=== PATIENT | male | born 1940 | race African-American/Black ===

== ENCOUNTER 2018-05-26 20:54 | Inpatient (IN) | payer MEDICARE, OTHER ==
[~2018-05-26] VITALS: Ht 175.3 cm; Wt 109.3 kg
[2018-05-26] MEDS ORDERED: SODIUM CHLORIDE 0.9% 1,000 ML IV ONE (23:28)
[2018-05-27 00:27] LABS: BASOPHILS % 0.4 % (0.0-2.0); HEMATOCRIT. 37.6 % (42.0-52.0); HEMOGLOBIN. 12.8 g/dL (14.0-18.0); LYMPHOCYTES % 16.6 % (20.0-50.0); MEAN CORPUSCULAR HEMOGLOBIN 29.4 pg (28.0-32.0); MEAN PLATELET VOLUME 10.6 fl (7.4-10.4); MONOCYTES % 5.8 % (2.0-8.0); NEUTROPHILS % 75.2 % (40.0-76.0); PLATELET 184 x1000/uL (130-400); RED BLOOD CELL COUNT 4.37 mill/uL (4.7-6.1)
[2018-05-27 00:30] LABS: CLARITY URINE CLEAR (CLEAR); COLOR URINE YELLOW (YELLOW); KETONES URINE NEGATIVE (NEGATIVE); LEUKOCYTE ESTERASE URINE NEGATIVE (NEGATIVE); NITRITE URINE NEGATIVE (NEGATIVE); OCCULT BLOOD URINE NEGATIVE (NEGATIVE); PROTEIN URINE 3+ (NEGATIVE); SPECIFIC GRAVITY URINE 1.026 (1.005-1.030); UROBILINOGEN URINE 0.2 E.U./dL (0.2-1.0)
[2018-05-27 00:31] LABS: CHLORIDE 101 mEq/L (98-107)
[2018-05-27 00:36] LABS: PROTHROMBIN TIME 10.2 sec (9.1-11.1)
[2018-05-27] MEDS ORDERED: AMLO2.5T45 MT (00:42)
[2018-05-27 00:46] LABS: BETA HYDROXYBUTYRATE 0.2 mMol/L (0.0-0.3)
[2018-05-27 01:11] LABS: BG CARBOXYHEMOGLOBIN 0.9 % (0.5-1.5); BG DEOXYHEMOGLOBIN 1.9 % (0.0-5.0); BG FRACTION INSPIRED OXYGEN 21; BG HCO3 ACT 24.4 mmol/L (22.0-26.0); BG METHEMOGLOBIN 0.1 % (0.0-1.5); BG OXYGEN SATURATION 98.1 % (92.0-98.5); BG OXYHEMOGLOBIN 97.1 % (94.0-97.0); BG PH 7.462 (7.350-7.450); BG PO2 110.6 mmHg (75.0-100.0); BG SAMPLE SITE LEFT BRACHIAL; BG TOTAL HEMOGLOBIN 11.6 g/dL (12.0-18.0); BG VENT MODE ROOM AIR
[2018-05-27] MEDS ORDERED: INSULIN REGULAR (HUMULIN R) 300UNITS/3ML SUBCUT ONE (02:15)
[2018-05-27] MEDS ORDERED: ASPIRIN 325MG TABLET PO ONE (02:30)
[2018-05-27] MEDS ORDERED: ALLO100T MT (05:30)
[2018-05-27] MEDS ORDERED: ATEN100T MT (05:37)
[2018-05-27] MEDS ORDERED: HYDR100T26 MT (05:39)
[2018-05-27] MEDS ORDERED: TERA5CAP4 MT (05:40)
[2018-05-27] MEDS ORDERED: FURO40TA5 MT (05:42)
[2018-05-27 05:50] VITALS: BP 189/82
[2018-05-27] MEDS ORDERED: HYDROCODONE/ACETAMINOPHEN 5/325MG TABLET PO PRN (07:15)
[2018-05-27] MEDS ORDERED: DIPHENHYDRAMINE 50MG/ML VIAL IV PRN (07:15)
[2018-05-27] MEDS ORDERED: DEXTROSE 50% WATER 50ML SYRINGE IV PRN (07:15)
[2018-05-27] MEDS ORDERED: MAGNESIUM/ALUMINUM HYDROXIDE/SIMETHICONE 30ML UDC PO PRN (07:15)
[2018-05-27] MEDS ORDERED: DOCUSATE SODIUM 100MG CAPSULE PO PRN (07:15)
[2018-05-27] MEDS ORDERED: GUAIFENESIN 200MG/10ML SUGAR FREE UDC PO PRN (07:15)
[2018-05-27] MEDS ORDERED: NA PHOS,M-B/NA PHOS,DI-BA ENEMA 118ML PR PRN (07:15)
[2018-05-27] MEDS ORDERED: IPRATROPIUM/ALBUTEROL 0.5-3(2.5)MG/3ML NEB INH PRN (07:15)
[2018-05-27] MEDS ORDERED: ONDANSETRON HCL 4MG/2ML INJ IV PRN (07:15)
[2018-05-27] MEDS ORDERED: ATENOLOL 100 MG TABLET PO SCH (08:00)
[2018-05-27] MEDS ORDERED: SODIUM CHLORIDE 0.9% 1,000 ML IV SCH (08:00)
[2018-05-27] MEDS ORDERED: AMLODIPINE 2.5MG TABLET PO SCH (08:00)
[2018-05-27] MEDS: BLOOD SUGAR DIAGNOSTIC STRIP TEST SCH ×4 (08:04→22:38)
[2018-05-27] MEDS ORDERED: ENOXAPARIN 40MG/0.4ML SYR SUBCUT SCH (09:00)
[2018-05-27] MEDS: GLIPIZIDE 5MG TABLET PO SCH ×2 (09:17→17:10)
[2018-05-27] MEDS: INSULIN LISPRO 100 UNITS/ML SUBCUT SCH ×4 (09:19→22:39)
[2018-05-27] MEDS ORDERED: POTASSIUM CHLORIDE 20MEQ TABLET SR PO NR (10:00)
[2018-05-27 11:09] LABS: BASOPHILS % 0.6 % (0.0-2.0); EOSINOPHILS % 4.4 % (0.0-5.0); HEMATOCRIT. 36.6 % (42.0-52.0); HEMOGLOBIN. 12.4 g/dL (14.0-18.0); LYMPHOCYTES % 28.3 % (20.0-50.0); MEAN CORPUSCULAR VOLUME 85.2 fL (80.0-94.0); MEAN PLATELET VOLUME 10.1 fl (7.4-10.4); MONOCYTES % 6.6 % (2.0-8.0); NEUTROPHILS % 60.1 % (40.0-76.0); PLATELET 186 x1000/uL (130-400); RED BLOOD CELL COUNT 4.29 mill/uL (4.7-6.1); RED CELL DISTRIBUTION WIDTH 14.1 % (11.6-14.6)
[2018-05-27 11:25] LABS: CHLORIDE 104 mEq/L (98-107)
[2018-05-27] MEDS ORDERED: POTASSIUM CHLORIDE INJ 40 MEQ in SODIUM CHLORIDE 0.9% 1,000 ML IV SCH (12:00)
[2018-05-27 13:06] VITALS: BP 161/66
[2018-05-27] MEDS ORDERED: POTASSIUM CHLORIDE 20MEQ TABLET SR PO SCH (13:15)
[2018-05-27] MEDS ORDERED: LACTULOSE 20G/30ML UDC PO SCH (13:30)
[2018-05-27 16:00] VITALS: BP 195/94
[2018-05-27] MEDS: SODIUM CHLORIDE 0.9% INJ 3ML FLUSH IVF SCH ×2 (16:53→22:39)
[2018-05-27] MEDS: DOCUSATE SODIUM 100MG CAPSULE PO SCH (16:54)
[2018-05-27] MEDS: CLONIDINE 0.1MG TABLET PO PRN (17:10)
[2018-05-27 20:00] VITALS: BP 167/77
[2018-05-27] MEDS: POLYETHYLENE GLYCOL 3350 (17GM) 1 DOSE PACK PO SCH (21:00)
[2018-05-27] MEDS: TERAZOSIN HCL 5MG CAPSULE PO SCH (22:37)
[2018-05-27] MEDS: ENOXAPARIN 30MG/0.3ML SYR SUBCUT SCH (23:17)
[2018-05-27] MEDS: ASPIRIN 81MG TABLET PO SCH (23:17)
[2018-05-27] MEDS: ATENOLOL 25MG TABLET PO SCH (23:17)
[2018-05-27] MEDS: BENAZEPRIL 10MG TABLET PO SCH (23:17)
[2018-05-28] VITALS: BP 136/72
[2018-05-28 04:00] VITALS: BP 139/67
[2018-05-28 06:35] LABS: BASOPHILS % 0.8 % (0.0-2.0); EOSINOPHILS % 3.4 % (0.0-5.0); HEMATOCRIT. 31.9 % (42.0-52.0); MEAN CORPUSCULAR HEMOGLOBIN 29.8 pg (28.0-32.0); MEAN CORPUSCULAR VOLUME 86.7 fL (80.0-94.0); MEAN PLATELET VOLUME 10.8 fl (7.4-10.4); MONOCYTES % 6.7 % (2.0-8.0); NEUTROPHILS % 53.1 % (40.0-76.0); PLATELET 160 x1000/uL (130-400); RED BLOOD CELL COUNT 3.68 mill/uL (4.7-6.1); RED CELL DISTRIBUTION WIDTH 14.1 % (11.6-14.6)
[2018-05-28] MEDS: BLOOD SUGAR DIAGNOSTIC STRIP TEST SCH ×4 (07:04→21:43)
[2018-05-28] MEDS: SODIUM CHLORIDE 0.9% INJ 3ML FLUSH IVF SCH ×3 (07:04→21:43)
[2018-05-28 07:06] LABS: CHLORIDE 108 mEq/L (98-107)
[2018-05-28] MEDS ORDERED: POTASSIUM CHLORIDE 20MEQ TABLET SR PO PRN (07:30)
[2018-05-28 07:32] LABS: LDL CHOLESTEROL 76 mg/dL (5-100); PHOSPHORUS 2.7 mg/dL (2.5-4.9)
[2018-05-28 07:34] LABS: HDL CHOLESTEROL 29 mg/dL (40-59)
[2018-05-28 08:00] VITALS: BP 158/54
[2018-05-28 08:49] LABS: CLARITY URINE CLEAR (CLEAR); COLOR URINE YELLOW (YELLOW); KETONES URINE TRACE (NEGATIVE); LEUKOCYTE ESTERASE URINE NEGATIVE (NEGATIVE); NITRITE URINE NEGATIVE (NEGATIVE); OCCULT BLOOD URINE NEGATIVE (NEGATIVE); PH URINE 5.5 (4.5-8.0); PROTEIN URINE 4+ (NEGATIVE); SPECIFIC GRAVITY URINE 1.021 (1.005-1.030); UROBILINOGEN URINE 0.2 E.U./dL (0.2-1.0)
[2018-05-28] MEDS ORDERED: ENOXAPARIN 30MG/0.3ML SYR SUBCUT SCH (09:00)
[2018-05-28] MEDS ORDERED: ATENOLOL 25MG TABLET PO SCH (09:00)
[2018-05-28] MEDS: ENOXAPARIN 30MG/0.3ML SYR SUBCUT SCH ×2 (09:49→21:29)
[2018-05-28] MEDS: ATENOLOL 25MG TABLET PO SCH (09:49)
[2018-05-28] MEDS: AMLODIPINE 10MG TABLET PO SCH (09:50)
[2018-05-28] MEDS: DOCUSATE SODIUM 100MG CAPSULE PO SCH ×2 (09:50→17:07)
[2018-05-28] MEDS: ASPIRIN 81MG TABLET PO SCH (09:50)
[2018-05-28] MEDS: GLIPIZIDE 5MG TABLET PO SCH ×3 (09:50→17:40)
[2018-05-28] MEDS: INSULIN LISPRO 100 UNITS/ML SUBCUT SCH ×4 (09:51→21:58)
[2018-05-28] MEDS: BENAZEPRIL 10MG TABLET PO SCH (09:58)
[2018-05-28] MEDS ORDERED: MAGNESIUM 2 G PREMIX 50 ML IV SCH (11:00)
[2018-05-28] MEDS ORDERED: POTASSIUM CHLORIDE 20MEQ TABLET SR PO SCH (11:00)
[2018-05-28 12:00] VITALS: BP 166/61
[2018-05-28] MEDS: HYDRALAZINE HCL 50MG TABLET PO SCH ×2 (14:01→22:52)
[2018-05-28 16:00] VITALS: BP 132/84
[2018-05-28 16:41] LABS: T4 FREE 1.24 ng/dL (0.76-1.46)
[2018-05-28] MEDS: CLOPIDOGREL 75MG TABLET PO SCH (18:54)
[2018-05-28 20:00] VITALS: BP 152/75
[2018-05-28] MEDS: TERAZOSIN HCL 5MG CAPSULE PO SCH (21:27)
[2018-05-28] MEDS: POLYETHYLENE GLYCOL 3350 (17GM) 1 DOSE PACK PO SCH (21:28)
[2018-05-28 23:58] LABS: CREATINE KINASE MB FRACTION 1.9 ng/mL (0.5-3.6)
[2018-05-29] VITALS: BP 155/72
[2018-05-29 04:00] VITALS: BP 170/75
[2018-05-29] MEDS: HYDRALAZINE HCL 50MG TABLET PO SCH ×2 (05:58→13:23)
[2018-05-29] MEDS: SODIUM CHLORIDE 0.9% INJ 3ML FLUSH IVF SCH ×2 (05:59→13:24)
[2018-05-29 06:45] LABS: BASOPHILS % 0.8 % (0.0-2.0); EOSINOPHILS % 3.4 % (0.0-5.0); HEMATOCRIT. 32.7 % (42.0-52.0); HEMOGLOBIN. 11.2 g/dL (14.0-18.0); LYMPHOCYTES % 31.7 % (20.0-50.0); MEAN CORPUSCULAR HEMOGLOBIN 29.6 pg (28.0-32.0); MEAN CORPUSCULAR VOLUME 86.3 fL (80.0-94.0); MEAN PLATELET VOLUME 10.7 fl (7.4-10.4); MONOCYTES % 6.9 % (2.0-8.0); NEUTROPHILS % 57.2 % (40.0-76.0); PLATELET 168 x1000/uL (130-400); RED BLOOD CELL COUNT 3.79 mill/uL (4.7-6.1); RED CELL DISTRIBUTION WIDTH 14.2 % (11.6-14.6)
[2018-05-29 07:19] LABS: PHOSPHORUS 2.6 mg/dL (2.5-4.9)
[2018-05-29 07:24] LABS: CREATINE KINASE MB FRACTION 1.5 ng/mL (0.5-3.6)
[2018-05-29] MEDS: BLOOD SUGAR DIAGNOSTIC STRIP TEST SCH ×3 (07:40→17:39)
[2018-05-29 08:00] VITALS: BP 170/75
[2018-05-29] MEDS: ASPIRIN 81MG TABLET PO SCH (08:55)
[2018-05-29] MEDS: AMLODIPINE 10MG TABLET PO SCH (08:55)
[2018-05-29] MEDS: GLIPIZIDE 5MG TABLET PO SCH ×2 (08:56→17:40)
[2018-05-29] MEDS: CLOPIDOGREL 75MG TABLET PO SCH (08:56)
[2018-05-29] MEDS: DOCUSATE SODIUM 100MG CAPSULE PO SCH ×2 (08:56→17:40)
[2018-05-29] MEDS: CLONIDINE 0.1MG TABLET PO PRN (08:57)
[2018-05-29] MEDS: ATENOLOL 25MG TABLET PO SCH (08:57)
[2018-05-29] MEDS: INSULIN LISPRO 100 UNITS/ML SUBCUT SCH ×3 (08:57→18:16)
[2018-05-29] MEDS: ENOXAPARIN 30MG/0.3ML SYR SUBCUT SCH (08:58)
[2018-05-29 12:07] VITALS: BP 168/75
[2018-05-29 16:13] VITALS: BP 155/73
[2018-05-29] MEDS ORDERED: METO25TA6 PO (16:34)
[2018-05-29] MEDS ORDERED: AMLO10TA80 PO (16:34)
[2018-05-29] MEDS ORDERED: GLIP5TAB12 PO (16:34)
[2018-05-29] MEDS ORDERED: TERA5CAP4 PO (16:34)
[2018-05-29] MEDS ORDERED: ASPI-1160 PO (16:34)
[2018-05-29] MEDS ORDERED: HYDR100T26 PO (16:34)
[2018-05-29] MEDS ORDERED: CLOP75TA16 PO (16:34)
[2018-05-29 18:25] VITALS: BP 155/73
[2018-05-29] MEDS ORDERED: METOPROLOL TARTRATE 25MG TABLET PO SCH (21:00)
[2018-05-29] MEDS ORDERED: HYDRALAZINE HCL 100MG TABLET PO SCH (22:00)
== END 2018-05-29 20:35 | disposition home health service (06) | DRG 637 ==
LOC: ER 22:04 → 7WST 05-27 02:02 → EDBEDREQ 05-27 02:04 → EDBEDREQSVC 05-27 02:04 → EDBEDREQTM 05-27 02:04 → EDBEDREQDT 05-27 02:04 → ENRESERV 05-27 05:13
PROVIDERS: ADMIT Family Medicine; ATTEND Family Medicine
DX: E11.00 Type 2 diabetes mellitus with hyperosmolarity without nonketotic hyperglycemic-hyperosmolar coma (NKHHC) (principal); E43 Unspecified severe protein-calorie malnutrition; N18.4 Chronic kidney disease, stage 4 (severe); E87.1 Hypo-osmolality and hyponatremia; G93.40 Encephalopathy, unspecified; I13.0 Hypertensive heart and chronic kidney disease with heart failure and stage 1 through stage 4 chronic kidney disease, or unspecified chronic kidney disease; J98.11 Atelectasis; D63.8 Anemia in other chronic diseases classified elsewhere; E11.22 Type 2 diabetes mellitus with diabetic chronic kidney disease; E78.5 Hyperlipidemia, unspecified; E86.0 Dehydration; E66.9 Obesity, unspecified; M10.9 Gout, unspecified; E11.65 Type 2 diabetes mellitus with hyperglycemia; E87.5 Hyperkalemia; E87.6 Hypokalemia; G40.909 Epilepsy, unspecified, not intractable, without status epilepticus; I50.9 Heart failure, unspecified; K59.00 Constipation, unspecified; T50.1X5A Adverse effect of loop [high-ceiling] diuretics, initial encounter; Z83.3 Family history of diabetes mellitus; Z68.35 Body mass index [BMI] 35.0-35.9, adult; Z86.73 Personal history of transient ischemic attack (TIA), and cerebral infarction without residual deficits; Z87.891 Personal history of nicotine dependence
CPT/HCPCS: 36415; 36600; 71045; 80048; 80061; 82010; 82375; 82550; 82553; 82570; 82805; 82962; 83036; 83605; 83735; 83880; 83930; 84100; 84145; 84156; 84439; 84443; 84484; 85379; 93005; 93306; 93970; 96360; 99291; A6261; J1650; J1815; J3475; J3480; J7030; J7040

== ENCOUNTER 2018-09-19 21:07 | Emergency (ER) | payer MEDICARE, OTHER ==
[~2018-09-19] VITALS: Ht 177.8 cm; Wt 100.0 kg
[~2018-09-19 21:07] MED LIST: ALLO100T MT; AMLO10TA80 PO; AMLO2.5T45 MT; ASPI-1160 PO; ATEN100T MT; CLOP75TA16 PO; FURO40TA5 MT; GLIP5TAB12 PO; HYDR100T26 MT; HYDR100T26 PO; METO25TA6 PO; TERA5CAP4 MT; TERA5CAP4 PO
[2018-09-19] MEDS ORDERED: METOPROLOL TARTRATE 50MG TABLET PO ONE (23:15)
[2018-09-19] MEDS ORDERED: ASPIRIN 81MG TABLET PO ONE (23:15)
[2018-09-19] MEDS ORDERED: LABETALOL HCL 20MG/4ML CARPUJECT IV ONE (23:15)
[2018-09-19] MEDS ORDERED: NITROGLYCERIN OINT 1GM/INCH UDPKT TD ONE (23:15)
[2018-09-19] MEDS ORDERED: ASPIRIN 325MG EC TABLET PO ONE (23:45)
[2018-09-19] MEDS ORDERED: NITROGLYCERIN 50MG PREMIX 250 ML IV ONE (23:45)
[2018-09-19] MEDS ORDERED: HEPARIN 25,000 UNITS PREMIX 500 ML IV ONE (23:45)
[2018-09-19] MEDS ORDERED: HEPARIN 5000 UNITS/ML VIAL IV ONE (23:45)
[2018-09-20] MEDS ORDERED: HEPARIN 60 UNITS/KG BOLUS IV SCH
[2018-09-20] MEDS ORDERED: HEPARIN 25,000 UNITS PREMIX 500 ML IV SCH
[2018-09-20] MEDS ORDERED: HEPARIN BOLUS PRN aPTT 30-44 IV
[2018-09-20] MEDS ORDERED: HEPARIN BOLUS PRN aPTT <30 IV
[2018-09-20 00:07] LABS: BASOPHILS % 0.6 % (0.0-2.0); EOSINOPHILS % 1.7 % (0.0-5.0); HEMATOCRIT. 38.5 % (42.0-52.0); HEMOGLOBIN. 12.9 g/dL (14.0-18.0); LYMPHOCYTES % 13.2 % (20.0-50.0); MEAN CORPUSCULAR VOLUME 86.5 fL (80.0-94.0); MEAN PLATELET VOLUME 10.2 fl (7.4-10.4); MONOCYTES % 6.2 % (2.0-8.0); NEUTROPHILS % 78.3 % (40.0-76.0); PLATELET 182 x1000/uL (130-400); RED BLOOD CELL COUNT 4.45 mill/uL (4.7-6.1); RED CELL DISTRIBUTION WIDTH 14.3 % (11.6-14.6)
[2018-09-20 00:12] LABS: CHLORIDE 106 mEq/L (98-107)
[2018-09-20 00:17] LABS: PARTIAL THROMBOPLASTIN TIME 27.8 sec (23.4-31.0)
[2018-09-20 00:23] VITALS: BP 235/115
== END 2018-09-20 00:30 | disposition short-term general hospital (02) ==
LOC: ER 21:07
DX: I21.3 ST elevation (STEMI) myocardial infarction of unspecified site (principal); E11.65 Type 2 diabetes mellitus with hyperglycemia; Z79.4 Long term (current) use of insulin; Z79.84 Long term (current) use of oral hypoglycemic drugs; I10 Essential (primary) hypertension; Z86.73 Personal history of transient ischemic attack (TIA), and cerebral infarction without residual deficits
CPT/HCPCS: 36415; 71045; 80053; 82962; 83880; 84484; 85025; 85610; 85730; 93005; 99291; J1644; J3490

== ENCOUNTER 2019-02-27 12:31 | Inpatient (IN) | payer MEDICARE, OTHER ==
[~2019-02-27] VITALS: Ht 177.8 cm; Wt 108.4 kg
[~2019-02-27 12:31] MED LIST changes: -CLOP75TA16 PO; +CLOP75TA4 PO
[2019-02-27 12:45] LABS: BASOPHILS % 0.6 % (0.0-2.0); EOSINOPHILS % 2.3 % (0.0-5.0); HEMATOCRIT. 33.5 % (42.0-52.0); LYMPHOCYTES % 14.3 % (20.0-50.0); MEAN CORPUSCULAR VOLUME 88.2 fL (80.0-94.0); MEAN PLATELET VOLUME 9.7 fl (7.4-10.4); MONOCYTES % 6.6 % (2.0-8.0); NEUTROPHILS % 76.2 % (40.0-76.0); PLATELET 217 x1000/uL (130-400); RED CELL DISTRIBUTION WIDTH 16.6 % (11.6-14.6)
[2019-02-27] MEDS ORDERED: FUROSEMIDE 40MG/4ML VIAL IV ONE (12:45)
[2019-02-27] MEDS ORDERED: NITROGLYCERIN OINT 1GM/INCH UDPKT TD ONE (12:45)
[2019-02-27 12:53] LABS: CHLORIDE 113 mEq/L (98-107); PROTHROMBIN TIME 10.8 sec (9.6-11.0)
[2019-02-27 13:16] LABS: BG BASE EXCESS -3.1 mmol/L (-2.0-2.0); BG BILEVEL POS AIRWAY PRESSURE 15/5; BG CARBOXYHEMOGLOBIN 0.4 % (0.5-1.5); BG DEOXYHEMOGLOBIN 1.1 % (0.0-5.0); BG FRACTION INSPIRED OXYGEN 50; BG HCO3 ACT 21.6 mmol/L (22.0-26.0); BG METHEMOGLOBIN 0.3 % (0.0-1.5); BG OXYGEN SATURATION 98.9 % (92.0-98.5); BG OXYHEMOGLOBIN 98.2 % (94.0-97.0); BG PCO2 37.4 mmHg (35.0-45.0); BG PH 7.379 (7.350-7.450); BG PO2 159.7 mmHg (75.0-100.0); BG SAMPLE SITE LEFT RADIAL; BG TOTAL HEMOGLOBIN 11.4 g/dL (12.0-18.0); BG VENT MODE MASK - BIPAP; BG VENT RATE 16 set
[2019-02-27] MEDS ORDERED: CLONIDINE 0.1MG TABLET PO ONE (13:45)
[2019-02-27] MEDS ORDERED: DILTIAZEM HCL 90MG TABLET PO SCH (15:15)
[2019-02-27] MEDS ORDERED: FUROSEMIDE 40MG/4ML VIAL IVP SCH (17:19)
[2019-02-27] MEDS ORDERED: DEXTROSE 50% WATER 50ML SYRINGE IV PRN (18:45)
[2019-02-27] MEDS ORDERED: GUAIFENESIN 200MG/10ML SUGAR FREE UDC PO PRN (18:45)
[2019-02-27] MEDS ORDERED: ENOXAPARIN 40MG/0.4ML SYR SUBCUT SCH (18:45)
[2019-02-27] MEDS ORDERED: ONDANSETRON HCL 4MG/2ML INJ IV PRN (18:45)
[2019-02-27] MEDS ORDERED: ACETAMINOPHEN 325MG TABLET PO PRN (18:45)
[2019-02-27] MEDS ORDERED: MAGNESIUM/ALUMINUM HYDROXIDE/SIMETHICONE 30ML UDC PO PRN (18:45)
[2019-02-27] MEDS ORDERED: CLONIDINE 0.1MG TABLET PO PRN (18:45)
[2019-02-27] MEDS ORDERED: IPRATROPIUM/ALBUTEROL 0.5-3(2.5)MG/3ML NEB HHN PRN (18:45)
[2019-02-27] MEDS ORDERED: DIPHENHYDRAMINE 50MG/ML VIAL IV PRN (18:45)
[2019-02-27] MEDS ORDERED: HYDRALAZINE 20MG/ML VIAL IV PRN (20:00)
[2019-02-27] MEDS ORDERED: HYDRALAZINE HCL 25MG TABLET PO SCH (20:00)
[2019-02-27] MEDS: HYDRALAZINE 20MG/ML VIAL IV PRN (20:06)
[2019-02-27] MEDS: BLOOD SUGAR DIAGNOSTIC STRIP TEST SCH (21:00)
[2019-02-27] MEDS ORDERED: ATORVASTATIN CALCIUM 40MG TABLET PO SCH (21:00)
[2019-02-27] MEDS: INSULIN LISPRO 100 UNITS/ML SUBCUT SCH (21:00)
[2019-02-27 21:27] VITALS: BP 194/96
[2019-02-27 21:30] VITALS: BP 194/96
[2019-02-27 22:00] VITALS: BP 186/91
[2019-02-27] MEDS ORDERED: INSULIN GLARGINE UD 100 UNITS/ML SYR SUBCUT SCH (22:00)
[2019-02-27] MEDS: ENOXAPARIN 30MG/0.3ML SYR SUBCUT SCH (22:39)
[2019-02-27] MEDS: CARVEDILOL 12.5MG TABLET PO SCH (22:40)
[2019-02-27] MEDS: DILTIAZEM HCL 90MG TABLET PO SCH (22:41)
[2019-02-27] MEDS: HYDRALAZINE HCL 25MG TABLET PO SCH (22:42)
[2019-02-27] MEDS: NITROGLYCERIN OINT 1GM/INCH UDPKT TD SCH (22:42)
[2019-02-27] MEDS: SODIUM CHLORIDE 0.9% INJ 3ML FLUSH IVF SCH (22:43)
[2019-02-27] MEDS: FUROSEMIDE 40MG/4ML VIAL IVP SCH (22:45)
[2019-02-28] VITALS (14 sets, daily range): BP systolic 146–185; BP diastolic 64–88
[2019-02-28] MEDS: DILTIAZEM HCL 90MG TABLET PO SCH ×2 (03:00→08:30)
[2019-02-28] MEDS: NITROGLYCERIN OINT 1GM/INCH UDPKT TD SCH ×2 (06:04→14:51)
[2019-02-28] MEDS: HYDRALAZINE HCL 25MG TABLET PO SCH (06:05)
[2019-02-28] MEDS: SODIUM CHLORIDE 0.9% INJ 3ML FLUSH IVF SCH ×2 (06:10→14:41)
[2019-02-28 06:54] LABS: PHOSPHORUS 3.1 mg/dL (2.5-4.9)
[2019-02-28 07:28] LABS: BASOPHILS % 0.7 % (0.0-2.0); EOSINOPHILS % 2.5 % (0.0-5.0); HEMATOCRIT. 32.9 % (42.0-52.0); HEMOGLOBIN. 10.4 g/dL (14.0-18.0); LYMPHOCYTES % 20.1 % (20.0-50.0); MEAN CORPUSCULAR HEMOGLOBIN 29.3 pg (28.0-32.0); MEAN CORPUSCULAR VOLUME 92.4 fL (80.0-94.0); MONOCYTES % 9.2 % (2.0-8.0); NEUTROPHILS % 67.5 % (40.0-76.0); PLATELET 186 x1000/uL (130-400); RED BLOOD CELL COUNT 3.56 mill/uL (4.7-6.1)
[2019-02-28] MEDS: BLOOD SUGAR DIAGNOSTIC STRIP TEST SCH ×3 (07:51→17:14)
[2019-02-28] MEDS: INSULIN LISPRO 100 UNITS/ML SUBCUT SCH ×3 (07:52→17:57)
[2019-02-28] MEDS: IPRATROPIUM/ALBUTEROL 0.5-3(2.5)MG/3ML NEB HHN SCH ×3 (08:27→16:33)
[2019-02-28] MEDS: FUROSEMIDE 40MG/4ML VIAL IVP SCH ×2 (08:29→17:57)
[2019-02-28] MEDS: ENOXAPARIN 30MG/0.3ML SYR SUBCUT SCH (08:30)
[2019-02-28] MEDS: CARVEDILOL 12.5MG TABLET PO SCH (08:31)
[2019-02-28] MEDS ORDERED: ASPIRIN 81MG EC TABLET PO SCH (09:00)
[2019-02-28] MEDS: DILTIAZEM HCL 60MG TABLET PO SCH ×2 (12:15→14:00)
[2019-02-28] MEDS ORDERED: HYDRALAZINE HCL 25MG TABLET PO SCH (14:00)
[2019-02-28] MEDS ORDERED: CLONIDINE 0.2MG TABLET PO SCH (14:00)
[2019-02-28 17:51] LABS: CREATINE KINASE MB FRACTION 1.5 ng/mL (0.5-3.6)
[2019-02-28] MEDS: HYDRALAZINE 20MG/ML VIAL IV PRN (17:58)
== END 2019-02-28 23:53 | disposition short-term general hospital (02) | DRG 291 ==
LOC: ER 12:35 → 5EST 13:13 → EDBEDREQ 13:16 → EDBEDREQSVC 13:16 → EDBEDREQTM 13:16 → ENRESERV 20:10
PROVIDERS: ADMIT Internal Medicine; ATTEND Internal Medicine
PROC: 5A09357 Assistance with Respiratory Ventilation, Less than 24 Consecutive Hours, Continuous Positive Airway Pressure (ICD-10-PCS; principal; 2019-02-27)
DX: I13.0 Hypertensive heart and chronic kidney disease with heart failure and stage 1 through stage 4 chronic kidney disease, or unspecified chronic kidney disease (principal); J96.90 Respiratory failure, unspecified, unspecified whether with hypoxia or hypercapnia; I50.43 Acute on chronic combined systolic (congestive) and diastolic (congestive) heart failure; I69.354 Hemiplegia and hemiparesis following cerebral infarction affecting left non-dominant side; E11.22 Type 2 diabetes mellitus with diabetic chronic kidney disease; E78.00 Pure hypercholesterolemia, unspecified; E78.5 Hyperlipidemia, unspecified; N18.2 Chronic kidney disease, stage 2 (mild); J44.9 Chronic obstructive pulmonary disease, unspecified; M10.9 Gout, unspecified; I25.10 Atherosclerotic heart disease of native coronary artery without angina pectoris; Z95.5 Presence of coronary angioplasty implant and graft; Z87.891 Personal history of nicotine dependence; Z83.3 Family history of diabetes mellitus; I25.2 Old myocardial infarction
CPT/HCPCS: 36415; 36600; 71045; 80048; 82375; 82550; 82553; 82805; 82962; 83036; 83735; 83880; 84100; 84484; 93005; 93306; 93970; 94640; 94660; 99291; J0360; J1650; J1815; J1940; J7042; J7620

== ENCOUNTER 2019-03-26 15:40 | Emergency (ER) | payer MEDICARE, OTHER ==
[~2019-03-26] VITALS: Ht 180.3 cm; Wt 86.0 kg
[2019-03-26] MEDS ORDERED: NITROGLYCERIN 0.4MG TABLET SL SL PRN (16:00)
[2019-03-26] MEDS ORDERED: ASPIRIN 81MG TABLET PO ONE (16:00)
[2019-03-26 16:10] LABS: BASOPHILS % 0.9 % (0.0-2.0); EOSINOPHILS % 3.3 % (0.0-5.0); HEMATOCRIT. 30.1 % (42.0-52.0); LYMPHOCYTES % 16.4 % (20.0-50.0); MEAN CORPUSCULAR HEMOGLOBIN 29.1 pg (28.0-32.0); MEAN CORPUSCULAR VOLUME 87.3 fL (80.0-94.0); MEAN PLATELET VOLUME 9.6 fl (7.4-10.4); MONOCYTES % 6.4 % (2.0-8.0); PLATELET 227 x1000/uL (130-400); RED BLOOD CELL COUNT 3.45 mill/uL (4.7-6.1); RED CELL DISTRIBUTION WIDTH 16.3 % (11.6-14.6)
[2019-03-26 16:16] LABS: CHLORIDE 116 mEq/L (98-107)
[2019-03-26] MEDS ORDERED: FUROSEMIDE 40MG/4ML VIAL IVP ONE (16:30)
[2019-03-26] MEDS ORDERED: HYDRALAZINE 20MG/ML VIAL IV ONE ×2 (17:00→18:30)
[2019-03-26 19:00] VITALS: BP 184/91
== END 2019-03-26 19:27 | disposition short-term general hospital (02) ==
LOC: ER 15:40 → CANBEDREQ 16:53 → ER 19:27
DX: I16.1 Hypertensive emergency (principal); I11.0 Hypertensive heart disease with heart failure; I50.9 Heart failure, unspecified
CPT/HCPCS: 36415; 71045; 80053; 83880; 84484; 85025; 93005; 96374; 96375; 96376; 99285; J0360; J1940

== ENCOUNTER 2019-05-10 19:47 | Inpatient (IN) | payer MEDICARE, OTHER ==
[~2019-05-10] VITALS: Ht 175.3 cm; Wt 108.9 kg
[2019-05-10] MEDS ORDERED: FUROSEMIDE 40MG/4ML VIAL IVP ONE (21:15)
[2019-05-10 22:58] LABS: BASOPHILS % 0.5 % (0.0-2.0); EOSINOPHILS % 3.1 % (0.0-5.0); HEMATOCRIT. 26.8 % (42.0-52.0); HEMOGLOBIN. 8.9 g/dL (14.0-18.0); LYMPHOCYTES % 16.1 % (20.0-50.0); MEAN CORPUSCULAR HEMOGLOBIN 28.9 pg (28.0-32.0); MEAN CORPUSCULAR VOLUME 86.6 fL (80.0-94.0); MEAN PLATELET VOLUME 9.9 fl (7.4-10.4); MONOCYTES % 5.8 % (2.0-8.0); NEUTROPHILS % 74.5 % (40.0-76.0); PLATELET 200 x1000/uL (130-400); RED CELL DISTRIBUTION WIDTH 16.7 % (11.6-14.6)
[2019-05-10 23:03] LABS: CHLORIDE 116 mEq/L (98-107)
[2019-05-11] MEDS ORDERED: MAGNESIUM/ALUMINUM HYDROXIDE/SIMETHICONE 30ML UDC PO PRN (00:15)
[2019-05-11] MEDS ORDERED: ONDANSETRON HCL 4MG/2ML INJ IV PRN (00:15)
[2019-05-11] MEDS ORDERED: MORPHINE SULFATE 2 MG/ML CPJ (NOT FOR IM USE) IV PRN (00:15)
[2019-05-11] MEDS ORDERED: CLONIDINE 0.1MG TABLET PO PRN (00:15)
[2019-05-11] MEDS ORDERED: IPRATROPIUM/ALBUTEROL 0.5-3(2.5)MG/3ML NEB NEB PRN (00:15)
[2019-05-11] MEDS ORDERED: ACETAMINOPHEN 325MG TABLET PO PRN (00:15)
[2019-05-11] MEDS ORDERED: DIPHENHYDRAMINE 50MG/ML VIAL IV PRN (00:15)
[2019-05-11] MEDS ORDERED: GUAIFENESIN 200MG/10ML SUGAR FREE UDC PO PRN (00:15)
[2019-05-11] MEDS ORDERED: ENOXAPARIN 100MG/ML SYR SUBCUT ONE (01:00)
[2019-05-11 01:05] LABS: INR 1.1; PROTHROMBIN TIME 11.3 sec (9.6-11.0)
[2019-05-11] MEDS ORDERED: NITROGLYCERIN OINT 1GM/INCH UDPKT TD NR (06:00)
[2019-05-11] MEDS ORDERED: CLONIDINE 0.2MG TABLET PO SCH (06:00)
[2019-05-11] MEDS ORDERED: DEXAMETHASONE 0.1% RIGHTEYE SCH (09:00)
[2019-05-11 11:19] LABS: CREATINE KINASE MB FRACTION 3.9 ng/mL (0.5-3.6)
[2019-05-11 13:00] VITALS: BP 133/64
[2019-05-11] MEDS ORDERED: FUROSEMIDE 40MG/4ML VIAL IVP SCH (14:00)
[2019-05-11] MEDS ORDERED: HYDRALAZINE HCL 50MG TABLET PO SCH (14:00)
[2019-05-11] MEDS: SODIUM CHLORIDE 0.9% INJ 3ML FLUSH IVF SCH ×2 (14:38→21:19)
[2019-05-11] MEDS: ASPIRIN 81MG EC TABLET PO SCH (14:39)
[2019-05-11] MEDS: NITROGLYCERIN OINT 1GM/INCH UDPKT TD SCH ×2 (14:40→21:20)
[2019-05-11] MEDS: CARVEDILOL 12.5MG TABLET PO SCH ×2 (14:41→21:19)
[2019-05-11] MEDS: CLONIDINE 0.1MG TABLET PO SCH ×2 (14:41→21:15)
[2019-05-11 16:00] VITALS: BP 107/56
[2019-05-11] MEDS ORDERED: LOSA50TA3 MT (16:00)
[2019-05-11] MEDS ORDERED: ISOS120T9 MT (16:00)
[2019-05-11] MEDS ORDERED: TERA5CAP4 MT (16:00)
[2019-05-11] MEDS ORDERED: FAMO40TA70 MT (16:00)
[2019-05-11] MEDS ORDERED: [UNRECOGNIZED DRUG - OTHER] BOTHEYE (16:02)
[2019-05-11] MEDS ORDERED: POLY10DR3 EACHEYE (16:02)
[2019-05-11] MEDS ORDERED: COR25 MT (16:05)
[2019-05-11] MEDS ORDERED: ATOR80TA MT (16:05)
[2019-05-11] MEDS ORDERED: NPH,100V SQ (16:05)
[2019-05-11] MEDS ORDERED: DORZ10DR12 RIGHTEYE (16:05)
[2019-05-11] MEDS ORDERED: POTA-9 MT (16:05)
[2019-05-11] MEDS ORDERED: DEXTROSE 50% WATER 50ML SYRINGE IV PRN (16:15)
[2019-05-11] MEDS: INSULIN LISPRO 100 UNITS/ML SUBCUT SCH ×2 (17:13→21:16)
[2019-05-11] MEDS: BLOOD SUGAR DIAGNOSTIC STRIP TEST SCH ×2 (17:13→21:20)
[2019-05-11] MEDS ORDERED: MAGNESIUM HYDROXIDE 400MG/5ML 30ML UDC PO PRN (18:45)
[2019-05-11] MEDS: CLOPIDOGREL 75MG TABLET PO SCH (18:45)
[2019-05-11] MEDS ORDERED: ATORVASTATIN CALCIUM 40MG TABLET PO SCH (21:00)
[2019-05-11] MEDS ORDERED: ATORVASTATIN CALCIUM 20MG TABLET PO SCH (21:00)
[2019-05-11] MEDS ORDERED: FAMOTIDINE 20MG TABLET PO SCH (21:00)
[2019-05-11] MEDS: HYDRALAZINE HCL 100MG TABLET PO SCH (21:18)
[2019-05-11] MEDS: DORZOLAM/TIMOLOL 2.23/0.68% OPHTH DROPS 10ML RIGHTEYE SCH (21:19)
[2019-05-12] MEDS: FUROSEMIDE 40MG/4ML VIAL IVP SCH ×2 (02:20→14:43)
[2019-05-12] MEDS: CLONIDINE 0.1MG TABLET PO SCH ×2 (06:06→14:43)
[2019-05-12] MEDS: NITROGLYCERIN OINT 1GM/INCH UDPKT TD SCH ×2 (06:07→14:43)
[2019-05-12] MEDS: HYDRALAZINE HCL 100MG TABLET PO SCH ×2 (06:07→14:43)
[2019-05-12] MEDS: SODIUM CHLORIDE 0.9% INJ 3ML FLUSH IVF SCH ×2 (06:07→14:45)
[2019-05-12 07:45] LABS: BASOPHILS % 0.9 % (0.0-2.0); EOSINOPHILS % 3.2 % (0.0-5.0); HEMATOCRIT. 28.2 % (42.0-52.0); LYMPHOCYTES % 19.9 % (20.0-50.0); MEAN CORPUSCULAR HEMOGLOBIN 28.5 pg (28.0-32.0); MEAN CORPUSCULAR VOLUME 89.6 fL (80.0-94.0); MEAN PLATELET VOLUME 10.9 fl (7.4-10.4); MONOCYTES % 6.3 % (2.0-8.0); NEUTROPHILS % 69.7 % (40.0-76.0); PLATELET 190 x1000/uL (130-400); RED BLOOD CELL COUNT 3.15 mill/uL (4.7-6.1); RED CELL DISTRIBUTION WIDTH 16.7 % (11.6-14.6)
[2019-05-12] MEDS: BLOOD SUGAR DIAGNOSTIC STRIP TEST SCH ×3 (07:45→17:40)
[2019-05-12 08:00] VITALS: BP 109/72
[2019-05-12] MEDS: ASPIRIN 81MG EC TABLET PO SCH (08:56)
[2019-05-12] MEDS: CARVEDILOL 12.5MG TABLET PO SCH (08:57)
[2019-05-12] MEDS: CLOPIDOGREL 75MG TABLET PO SCH (08:57)
[2019-05-12] MEDS: DORZOLAM/TIMOLOL 2.23/0.68% OPHTH DROPS 10ML RIGHTEYE SCH (08:58)
[2019-05-12] MEDS ORDERED: COLCHICINE 0.6MG TABLET PO SCH (09:00)
[2019-05-12] MEDS ORDERED: ALLOPURINOL 100 MG TABLET PO SCH (09:00)
[2019-05-12] MEDS: INSULIN LISPRO 100 UNITS/ML SUBCUT SCH ×3 (09:00→19:17)
[2019-05-12] MEDS ORDERED: ENOXAPARIN 40MG/0.4ML SYR SUBCUT SCH (09:00)
[2019-05-12] MEDS ORDERED: DEXAMETHASONE 0.1% RIGHTEYE SCH (09:00)
[2019-05-12] MEDS ORDERED: DOCUSATE SODIUM 250MG CAPSULE PO SCH (09:00)
[2019-05-12 12:00] VITALS: BP 115/74
[2019-05-12] MEDS ORDERED: DILTIAZEM HCL 60MG TABLET PO SCH (14:00)
[2019-05-12 16:00] VITALS: BP 113/64
[2019-05-12 19:58] VITALS: BP 118/69
[2019-05-12 20:01] VITALS: BP 118/69
[2019-05-12] MEDS ORDERED: EPOETIN ALFA 4000UNITS/ML VIAL SUBCUT NR (21:00)
== END 2019-05-12 20:48 | disposition short-term general hospital (02) | DRG 280 ==
LOC: ER 19:47 → 7WST 22:59 → ENRESERV 05-11 10:52
PROVIDERS: ADMIT Internal Medicine; ATTEND Internal Medicine
DX: I21.4 Non-ST elevation (NSTEMI) myocardial infarction (principal); I50.33 Acute on chronic diastolic (congestive) heart failure; J96.91 Respiratory failure, unspecified with hypoxia; E44.1 Mild protein-calorie malnutrition; I13.0 Hypertensive heart and chronic kidney disease with heart failure and stage 1 through stage 4 chronic kidney disease, or unspecified chronic kidney disease; N17.9 Acute kidney failure, unspecified; J44.1 Chronic obstructive pulmonary disease with (acute) exacerbation; I69.354 Hemiplegia and hemiparesis following cerebral infarction affecting left non-dominant side; E78.5 Hyperlipidemia, unspecified; I25.10 Atherosclerotic heart disease of native coronary artery without angina pectoris; D64.9 Anemia, unspecified; E11.22 Type 2 diabetes mellitus with diabetic chronic kidney disease; E66.9 Obesity, unspecified; E78.00 Pure hypercholesterolemia, unspecified; M10.9 Gout, unspecified; N18.3 Chronic kidney disease, stage 3 (moderate); Z87.891 Personal history of nicotine dependence; Z95.5 Presence of coronary angioplasty implant and graft; Z68.35 Body mass index [BMI] 35.0-35.9, adult; Z82.49 Family history of ischemic heart disease and other diseases of the circulatory system; Z83.3 Family history of diabetes mellitus; Z79.899 Other long term (current) drug therapy; Z79.82 Long term (current) use of aspirin
CPT/HCPCS: 36415; 71045; 76770; 80048; 82550; 82553; 82962; 83880; 84484; 93005; 93306; 96372; 96374; 99285; J0885; J1650; J1815; J1940; J2270; J2405